=== PATIENT | female | born 1975 | race Caucasian/White ===

== ENCOUNTER 2025-01-01 11:57 | Emergency (ER) | payer SELFPAY ==
[~2025-01-01] VITALS: Ht 162.6 cm; Wt 60.0 kg
[2025-01-01 12:14] VITALS: O2SAT 99
[2025-01-01] MEDS ORDERED: ACET-2708 MT (13:40)
[2025-01-01] MEDS: ACETAMINOPHEN 500MG TABLET PO ONE (14:45)
[2025-01-01 14:57] VITALS: BP 129/64; PULSE 78; RESP 16; TEMP 36.9; O2SAT 100
[2025-01-01] MEDS ORDERED: IBUP-2029 MT (21:02)
== END 2025-01-01 15:19 | disposition home or self-care (01) ==
LOC: ER 11:57
DX: M25.561 Pain in right knee (principal)
CPT/HCPCS: 99283; 73560; A6449

== ENCOUNTER 2025-01-01 18:41 | Emergency (ER) | payer MEDICAID ==
[~2025-01-01] VITALS: Ht 170.2 cm; Wt 72.0 kg
[~2025-01-01 18:41] MED LIST: ACET-2708 MT
[2025-01-01 18:50] VITALS: O2SAT 100
[2025-01-01] MEDS ORDERED: IBUP-2029 MT (21:02)
[2025-01-01 21:31] VITALS: BP 101/65; PULSE 78; RESP 18; TEMP 36.9; O2SAT 98
== END 2025-01-01 21:33 | disposition home or self-care (01) ==
LOC: ER 18:41
DX: M79.604 Pain in right leg (principal); M79.605 Pain in left leg
CPT/HCPCS: 99283

== ENCOUNTER 2025-01-03 12:00 | Emergency (ER) | payer MEDICAID ==
[~2025-01-03] VITALS: Ht 165.1 cm; Wt 55.0 kg
[~2025-01-03 12:00] MED LIST changes: +IBUP-2029 MT
[2025-01-03 12:11] VITALS: TEMP 37.1; O2SAT 100
[2025-01-03 13:43] VITALS: BP 117/77; PULSE 88; RESP 16; O2SAT 100
== END 2025-01-03 13:45 | disposition home or self-care (01) ==
LOC: ER 12:00
DX: Z76.89 Persons encountering health services in other specified circumstances (principal); Z59.00 Homelessness unspecified; F20.9 Schizophrenia, unspecified
CPT/HCPCS: 99283